=== PATIENT | male | born 1960 | race Caucasian/White ===

== ENCOUNTER → 2020-02-26 | Outpatient (CLI) | payer OTHER ==
[~2020-02-26] VITALS: Ht 182.9 cm; Wt 117.5 kg
[~2020-02-26] MED LIST: AUGMENTIN 875875 MG PO; CHOLESTYRAMINE R5 GM MC; DAZIDOX10 MG PO; DEXILANT60 MG PO; FLEXERIL PO; FLOMAX PO; FLOMAX0.4 MG PO; HYDROCODON-ACE1 EAC5 PO; HYDROCODONE-AP1 EAC6 PO; IBUPROFEN 800800 M1 PO; LISINOPRIL-HCT1 EAC2 PO; LOMOTIL TABLET1 EACH PO; LOPRESSOR25 PO; NORCO 10-325 T1 EACH PO; PERCOCET PO; PHENTERMINE HCL30 MG PO; ZANTAC 150MG T150 MG PO; ZOFRAN4 MG PO
[2020-02-26 08:57] LABS: HEMATOCRIT 45.3 % (42.0-52.0); HEMOGLOBIN 15.3 gm/dL (14.0-18.0); MCH 30.3 pg (26.0-34.0); MCHC 33.8 g/dL (28.0-37.0); MCV 89.6 fL (80.0-100.0); RBC 5.06 mil/uL (4.50-6.00); WBC 9.9 thou/uL (4.0-11.0)
--- NOTE | 2020-02-26 09:04 | EKG ---
[facility] [place] [address] ELECTROCARDIOGRAM REPORT Name: JJ ZAMORANO Room #: REG 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: [facility] : 1960 Requested By: Berto Garcia Order Number: [id number] MD: Rizwan Perez Measurements Intervals [place] Rate: 60 P: 44 PA: 185 QRS: 3 QRSD: 108 T: -2 QT: 410 QTc: 410 Interpretive Statements Sinus rhythm Borderline T abnormalities, inferior leads Compared to ECG 03/16/2015 05:16:34 T-wave abnormality now present Electronically Signed On 02-26-2020 9:02:32 CDT by Rizwan Perez [email or web address] <ELECTRONICALLY SIGNED> By: Rizwan Perez MD, FACC 02/26/20 0902 0848 0848 Rizwan Perez MD, [facility] /EPI
[2020-02-26 09:05] LABS: CALCIUM 8.3 mg/dL (8.5-10.1); CREATININE 1.4 mg/dL (0.7-1.3)
[2020-02-26 09:24] VITALS: BP 127/75
--- NOTE | 2020-02-29 23:42 | CATHLAB ---
[facility] [place] [place] [address] INVASIVE PROCEDURE REPORT Name: JJ ZAMORANO Room #: REG SHIVAM Malika#: [id number] Admission: 02/26/20 Attend Phys: Berto Garcia Discharge: Date of : 64 Report #: [id number] THIS REPORT FOR: cc: Jose Goss MD, Alberto MD Lammoglia, Francisco J. MD ~ APPROVED REPORT Study performed: 02/26/2020 09:50:30 Patient Details Patient Status: Out-Patient Room #: The patient is a 59 year-old male Event Personnel Berto Garcia Knotting Machine Operator, Nicole Myles RN RN, Abel Cheek RTR Jaylene, Shila Anderson Monitor Procedures Performed Art Access - R femoral artery* Left Heart Cath w/or w/o Coronaries [id number] [facility] Hemostasis with Manual pressure 47304 Initial Mod Sed Same Phys/QHP Gr5y 114370 23240 Mod Sed Same Phys/QHP Ea 783269, SUPERVISION OF CONSCIOUS SEDATION Indication Chest pain Procedure Narrative The Right Groin^ was infiltrated with 1% Lidocaine subcutaneous anesthesia. A PINNACLE 4FR Sheath #[id number] sheath was inserted into the RFA 4f^. Coronary angiography was performed using coronary diagnostic catheters. The right coronary system was accessed and visualized with a JR4 catheter. The left coronary system was accessed and visualized with a JL4 catheter. Hemostasis was obtained with manual pressure following sheath removal without any complications. There was no hematoma. Intraoperative Conscious Sedation Sedation start time: 1028 Case end Time: 1110 Versed 4 mg Fluoro Time: 3.18 minutes Dose: DAP 4175.50 cGycm2 602 mGy [facility] [address] [place] [address] INVASIVE PROCEDURE REPORT Name: JJ ZAMORANO Room #: REG [facility]#: [id number] Admission: 02/26/20 Attend Phys: Berto Reyes Discharge: Date of : 64 Report #: [id number] Contrast Type and Amount: Omnipaque 45 ml Coronary Angiography The patient's coronary anatomy is right dominant. Diagnostic Cath Left Main MODERATE CALIBER VESSEL OF NORMAL ORIGIN BIFURCATES INTO LAD AND LCX CORONARY ARTERIES. LUMINAL IRREGULARITIES ARE NOTED BUT NO HIGH GRADE LESIONS. LAD MODERATE CALIBER TYPE II VESSEL COARSING IN THE ANTERIOR INTERVENTRICULAR SULCUS GIVING RISE TO A MODERATE CALIBER FIRST DIAGONAL VESSEL THEN RAPIDLY TAPERS TO A STRING LIKE VESSEL TERMINATING IN THE LEFT VENTRICULAR APEX. THERE IS A MODERATE LESION IN THE PROXIMAL PORTIN OF THE MID LAD WHICH APPEARS NOT TO BE FLOW LIMITING. THE LAD IS LESS THAN 1mm AT THIS POINT. Diagonal 1 MODERATE CALIBER VESSEL PROCEEDING ALONG THE ANTEROLATERAL ASPECT OF THE LEFT VENTRICLE FREE OF SIGNIFICANT OBSTRUCTIVE LESIONS. Circumflex MODERATE CALIBER VESSEL PROCEEDING WITHIN THE ATRIAL VENTRICULAR GROOVE GIVING RISE TO TWO POSTEROLATERAL MARGINAL BRANCHES. IT IS FREE OF HIGH GRADE LESIONS. OM1 VERY SMALL CALIBER VESSEL TORTUOUS IN ITS COARSE WITHOUT IGH GRADE LESIONS OM2 DIMINUITIVE VESSEL Right Coronary LARGE CALIBER VESSEL OF NORMAL ORIGINS WITH PROXIMAL ECTASIA PROCEED IN THE AV GOOVE POSTERIORLY WITH NONOBSTRUCTIVE LUMINAL LESIONS. R PDA MODERATE CALIBER RAPIDLY TAPERING VESSEL PROCEED IN POSTERIOR INTERVENTRICULAR SULCUS WITHOUT HIGHGRADE LESIONS Left Ventriculography Left Ventriculography was not performed. Hemodynamics The aortic pressure is 143/90 mmHg with a mean of 116 mmHg. Conclusion 1. CORONARY ARTERY DISEASE MILD TO MODERATE NONOBSTRUCTIVE 2. NORMAL HEMODYNAMICS Recommendations [facility] [place] [address] [place] [address] INVASIVE PROCEDURE REPORT Name: JJ ZAMORANO Room #: REG [facility].#: [id number] Admission: 02/26/20 Attend Phys: Berto Reyes Discharge: Date of : 64 Report #: [id number] Cardiac Risk Reduction Program Medical Therapy <ELECTRONICALLY SIGNED> By: Berto Garcia MD 02/29/202339 39 39 Berto Garcia MD /INF
== END | disposition home or self-care (01) ==
LOC: CATH 07:57
PROVIDERS: Internal Medicine
DX: R07.9 Chest pain, unspecified (principal); I10 Essential (primary) hypertension; E78.5 Hyperlipidemia, unspecified; I73.9 Peripheral vascular disease, unspecified; K21.9 Gastro-esophageal reflux disease without esophagitis; Z98.890 Other specified postprocedural states; Z79.899 Other long term (current) drug therapy; Z98.52 Vasectomy status; Z90.49 Acquired absence of other specified parts of digestive tract; Z87.442 Personal history of urinary calculi

== ENCOUNTER → 2020-05-11 | Outpatient (CLI) | payer OTHER | LOC: SJCVCIMAG 11:10 | PROVIDERS: ATTEND Nuclear Medicine Nuclear Cardiology | DX: I73.9 Peripheral vascular disease, unspecified (principal) ==

== ENCOUNTER → 2021-01-12 | Outpatient (CLI) | payer OTHER ==
[~2021-01-12] VITALS: Ht 182.9 cm; Wt 104.3 kg
[~2021-01-12] MED LIST changes: +ZOLOFT50 M1 PO
[2021-01-12 08:51] LABS: HEMATOCRIT 41.7 % (42.0-52.0); HEMOGLOBIN 14.1 gm/dL (14.0-18.0); MCH 29.8 pg (26.0-34.0); MCHC 33.8 g/dL (28.0-37.0); MCV 88.1 fL (80.0-100.0); RBC 4.74 mil/uL (4.50-6.00); RDW 13.4 % (10.5-14.5); WBC 5.4 thou/uL (4.0-11.0)
[2021-01-12 09:01] LABS: CALCIUM 8.5 mg/dL (8.5-10.1); CREATININE 1.4 mg/dL (0.7-1.3); POTASSIUM 4.2 mmol/L (3.5-5.1)
--- NOTE | 2021-01-12 12:43 | EKG ---
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
--- NOTE | 2021-01-27 23:19 | CATHLAB ---
[facility] [place] [address] INVASIVE PROCEDURE REPORT Name: JJ ZAMORANO Room #: REG SHIVAM Malika#: [id number] Admission: 01/12/21 Attend Phys: Berto Garcia Discharge: Date of : 64 Report #: [id number] THIS REPORT FOR: cc: Jose Goss MD, Alberto MD Lammoglia, Francisco J. MD ~ APPROVED REPORT Study performed: 01/12/2021 09:00:52 Patient Details Patient Status: Out-Patient Room #: The patient is a 60 year-old male Event Personnel Berto Garcia Christmas Tree Contractor, Cleveland Chung RTR Monitor, Abel Cheek RTR Scrub, Bev Theodore RN information security architect Performed Art Access - R femoral artery* Left Heart Cath w/or w/o Coronaries [id number] [facility] [address] Initial Mod Sed Same Phys/QHP Gr5y 245223 37249 Mod Sed Same Phys/QHP Ea 578869 Hemostasis w/ Mynx, IFR of the LAD, supervision of conscious sedation Indication Chest pain Procedure Narrative The Right Groin^ was infiltrated with 1% Lidocaine subcutaneous anesthesia. A 6FR PINNACLE sheath was inserted into the RFA^. Coronary angiography was performed using coronary diagnostic catheters. The right coronary system was accessed and visualized with a JR4 catheter. The left coronary system was accessed and visualized with a LAUNCHER 6FR JL4 #[id number] catheter. The left ventricle was accessed and visualized with a PIGTAIL catheter. Left ventricular/Aortic Valve gradient assessed via catheter pullback. Closure device was deployed with a 6 Fr MYNXGRIP 6/7F #[id number]. The patient tolerated the procedure well and there were no complications associated with the procedure. There was no hematoma. Intraoperative Conscious Sedation Sedation start time: 942 Case end Time: 1031 [facility] [place] [address] INVASIVE PROCEDURE REPORT Name: JJ ZAMORANO Room #: REG Malika#: [id number] Admission: 01/12/21 Attend Phys: Berto Reyes Discharge: Date of : 64 Report #: [id number] Versed 4 mg Fluoro Time: 7.50 minutes Dose: DAP 8126.30 cGycm2 1338 mGy Contrast Type and Amount: Omnipaque 75 ml Coronary Angiography The patient's coronary anatomy is right dominant. Diagnostic Cath Left Main Small to moderate caliber vessel which bifurcates into LAD and LCx vessels. No significant stenosis LAD Small caliber vessel coursing in the anterior interventricular sulcus, it rapidly tapers to a string from the mid to apical portion. there is a region that appears to be more significantly narrowed although flow doesnt appear limited Diagonal 1 small caliber vessel of similar diameter as mid LAD. no high grade flow limiting vesel noted Circumflex Moderate to large caliber vessell which gives rise to a small first marginal. the lcx proper then continues with the second marginal arises and continues beyond with two posterior wall branches whic are small OM1 dimiuitive caliber vessel OM2 small caliber Right Coronary Large caliber vessel of normal origin proceeds in the AV groove with luminal irregularities in its proximal and distall portions. R PDA small caliber vessel with irregularities present but no obstructive lesion Left Ventriculography Left Ventriculography was not performed. IVUS Fractional Flow [place] was performed on the proximal and mid left anterior descending artery segment vessel. A 6 Fr JL 4 Guide Catheter was used to engage the left coronary ostium. A FFR wire was used. Hemodynamics The aortic pressure is 135/78 mmHg with a mean of 101 mmHg. The left ventricular pressure is 128/12 mmHg with a mean of mmHg. The left ventricular end diastolic pressure is 21 mmHg. Pullback from the left ventricle to the aorta revealed a mm gradient across the aortic valve. FFR measurement was completed for the dLAD lesion using Abbot PressureWire X. Pre FFR measurement was 1.00. FFR measurement across [facility] [address] [place] [address] INVASIVE PROCEDURE REPORT Name: JJ ZAMORANO Room #: REG QUYNH Daly#: [id number] Admission: 01/12/21 Attend Phys: Berto Reyes Discharge: Date of : 64 Report #: [id number] the lesion was 0.95. PCI Technique Lesion The lesion stenosis prior to intervention was proximal and mid left anterior descending artery segment% with LUPIS 6 Fr JL 4 flow. A left coronary Guide Catheter was used to engage the ostium. A FFR wire Interventional Guidewire was used to cross the lesion. Conclusion 1. Mild coronary aretery disease single vessel 2. Abnormal hemodynamics with elevated LVEDP 3. Non-significant IFR of the LAD 0.95 Recommendations Cardiac Risk Reduction Program Medical Therapy <ELECTRONICALLY SIGNED> By: Berto Garcia MD 01/27/212318 18 18 Berto Garcia MD /INF
== END | disposition home or self-care (01) ==
LOC: CATH 07:26
PROVIDERS: ATTEND Internal Medicine
DX: R07.9 Chest pain, unspecified (principal); I25.10 Atherosclerotic heart disease of native coronary artery without angina pectoris; I11.0 Hypertensive heart disease with heart failure; I50.1 Left ventricular failure, unspecified; E78.5 Hyperlipidemia, unspecified; I73.9 Peripheral vascular disease, unspecified; K21.9 Gastro-esophageal reflux disease without esophagitis; G47.30 Sleep apnea, unspecified; Z98.890 Other specified postprocedural states; Z79.899 Other long term (current) drug therapy; Z98.52 Vasectomy status; Z90.49 Acquired absence of other specified parts of digestive tract; Z87.442 Personal history of urinary calculi

== ENCOUNTER 2021-12-04 18:48 | Inpatient (IN) | payer OTHER ==
[~2021-12-04] VITALS: Ht 182.9 cm; Wt 111.6 kg
[2021-12-04 22:10] VITALS: BP 151/97
[2021-12-04 22:30] VITALS: BP 151/97
[2021-12-04] MEDS ORDERED: NORCO 10-325 T1 EACH PO (22:33)
[2021-12-05 03:23] VITALS: BP 112/61
[2021-12-05 06:45] LABS: HEMATOCRIT 40.2 % (42.0-52.0); HEMOGLOBIN 13.4 gm/dL (14.0-18.0); MCH 29.5 pg (26.0-34.0); MCHC 33.3 g/dL (28.0-37.0); MCV 88.7 fL (80.0-100.0); RBC 4.53 mil/uL (4.50-6.00); WBC 5.1 thou/uL (4.0-11.0)
[2021-12-05 07:05] LABS: CALCIUM 8.5 mg/dL (8.5-10.1); CREATININE 1.3 mg/dL (0.7-1.3); POTASSIUM 3.5 mmol/L (3.5-5.1)
[2021-12-05 07:15] VITALS: BP 105/57
[2021-12-05 11:10] VITALS: BP 106/57
[2021-12-05 15:15] VITALS: BP 124/58
[2021-12-05 20:00] VITALS: BP 140/83
[2021-12-05 20:14] VITALS: BP 140/83
[2021-12-06 00:24] VITALS: BP 110/64
[2021-12-06 04:11] LABS: APTT 26.2 Seconds (24.5-32.8); INR 0.96; PROTIME 10.5 Seconds (10.5-12.1)
[2021-12-06 04:25] VITALS: BP 114/50
[2021-12-06 04:56] LABS: ABSOLUTE NEUTROPHILS 3.6 thou/uL (1.4-8.2); BASOPHILS 0.8 % (0.0-2.0); EOSINOPHILS 2.2 % (0.0-3.0); HEMATOCRIT 40.6 % (42.0-52.0); HEMOGLOBIN 13.6 gm/dL (14.0-18.0); LYMPHOCYTES 23.9 % (24.0-44.0); MCH 29.7 pg (26.0-34.0); MCHC 33.6 g/dL (28.0-37.0); MCV 88.4 fL (80.0-100.0); MONOCYTES 8.6 % (1.0-8.0); PLATELET COUNT 186 thou/uL (150-400); POLYS 64.5 % (36.0-66.0); RBC 4.59 mil/uL (4.50-6.00); RDW 12.9 % (10.5-14.5); WBC 5.6 thou/uL (4.0-11.0)
[2021-12-06 05:04] LABS: CHOLESTEROL 197 mg/dL (<200); HDL CHOLESTEROL 43 mg/dL (>40); LDL CHOLESTEROL 117 mg/dL (<100); TC:HDL 4.6 Ratio (Not establshd); TRIGLYCERIDE 186 mg/dL (<150); VLDL 37 mg/dL (<40)
[2021-12-06 05:06] LABS: SERUM ASSESSMENT Clear
[2021-12-06 07:10] VITALS: BP 132/80
--- NOTE | 2021-12-06 08:30 | EKG ---
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
--- NOTE | 2021-12-06 09:17 | HC ---
[facility] [place] [address] CONSULTATION Name: JJ ZAMORANO Room #: 200-I ADM IN M.R.#: [id number] Admission: 12/04/21 Attend Phys: Kahlil Herbert MD Discharge: Date of : 64 Report #: [id number] THIS REPORT FOR: cc: Jose Goss MD, Alberto MD Park,Frederic Estrada MD ~ DATE OF SERVICE: 12/05/2021 CARDIOLOGY CONSULTATION CHIEF COMPLAINT: Chest pain. HISTORY OF PRESENT ILLNESS: This is a 61-year-old male with a history of nonobstructive CAD, left bundle-branch block, hypertension, celiac artery aneurysm repair, GERD and PTSD, presenting with chest pain. He was evaluated at [facility] and transferred for further evaluation. Yesterday, while loading a truck with light boxes, he developed substernal chest pain radiating down the left arm. He had some shortness of breath and diaphoresis. It lasted at least 20 minutes in duration. After it was relieved, he tried to lift the boxes again and had similar symptoms. There is no history of fever, chills, cough or nausea. PAST MEDICAL HISTORY: CAD/nonobstructive: He has had 3 cardiac catheterizations in the past 5 years, no evidence for obstructive disease. Chronic chest pain syndrome, on Ranexa, supervised by Dr. Garcia. History of left bundle branch block, hypertension, celiac artery aneurysm repair, GERD and PTSD. ALLERGIES: None. MEDICATIONS: At home include Ranexa twice a day, Zoloft for PTSD, metoprolol. SOCIAL HISTORY: Denies tobacco use. FAMILY HISTORY: Negative for premature CAD. REVIEW OF SYSTEMS: A full 10-point review of systems was performed. Only the pertinent positives and negatives are described in the HPI. PHYSICAL EXAMINATION: VITAL SIGNS: Blood pressure is 112/60, heart rate is 70 beats per minute. GENERAL APPEARANCE: This is a well-developed, well-nourished male in no acute distress. HEENT: Normocephalic, atraumatic. Oral mucosa moist. NECK: Supple. LUNGS: CTA. [facility] [address] [place] [address] CONSULTATION Name: LONAJJ Room #: 200-I ADM IN .R.#: [id number] Admission: 12/04/21 Attend Phys: Kahlil Herbert MD Discharge: Date of : 64 Report #: [id number] CARDIAC: Regular rate and rhythm, S1, S2 positive. ABDOMEN: Soft, nontender. EXTREMITIES: Trace edema, no cyanosis. DIAGNOSTIC DATA: ECG reveals sinus rhythm, left bundle-branch block. LABORATORY DATA: Hemoglobin 13.4. Troponin is negative x2. ASSESSMENT AND PLAN: 1. Chest pain syndrome, the story is suggestive for ischemia; however, he has had multiple presentations in a similar fashion. Subsequent cardiac catheterizations have revealed nonobstructive coronary artery disease. His left bundle-branch block is chronic and two sets of troponin levels are negative. Other considerations include GI, esophageal spasm and musculoskeletal. Consider GI evaluation at this time. 2. Hypertension, continue on the antihypertensive regimen. 3. Gastroesophageal reflux disease, continue with PPI. 4. Posttraumatic stress disorder, continue with sertraline. <ELECTRONICALLY SIGNED> By: Frederic Pacheco MD 12/06/21 0917 0830 1302 Frederic Pacheco MD /nt
[2021-12-06 11:15] VITALS: BP 121/75; BP 1210/75
[2021-12-06 19:34] VITALS: BP 125/80
[2021-12-06 20:27] VITALS: BP 125/80
== END 2021-12-07 | disposition home or self-care (01) | DRG 303 ==
LOC: 2N 18:48
PROVIDERS: Nurse Practitioner Family; ADMIT Internal Medicine; ATTEND Internal Medicine
DX: I25.110 Atherosclerotic heart disease of native coronary artery with unstable angina pectoris (principal); K55.1 Chronic vascular disorders of intestine; N17.9 Acute kidney failure, unspecified; K21.9 Gastro-esophageal reflux disease without esophagitis; G47.33 Obstructive sleep apnea (adult) (pediatric); I44.7 Left bundle-branch block, unspecified; F43.10 Post-traumatic stress disorder, unspecified; I73.9 Peripheral vascular disease, unspecified; E66.9 Obesity, unspecified; I10 Essential (primary) hypertension; E78.5 Hyperlipidemia, unspecified; Z87.442 Personal history of urinary calculi; Z90.49 Acquired absence of other specified parts of digestive tract; Z98.52 Vasectomy status; Z83.3 Family history of diabetes mellitus; Z82.49 Family history of ischemic heart disease and other diseases of the circulatory system; Z68.33 Body mass index [BMI] 33.0-33.9, adult
CPT/HCPCS: 10081; 10797